=== PATIENT | female | born 1985 | race Caucasian/White ===

== ENCOUNTER 2016-09-02 09:23 | Emergency (ER) | payer BC, OTHER ==
[~2016-09-02] VITALS: Ht 170.2 cm; Wt 104.3 kg
[~2016-09-02 09:23] MED LIST: CETI10TA22 PO
--- NOTE | 2016-09-02 09:46 | PHYS DOC ---
General Chief Complaint: ABDOMINAL PAIN Stated Complaint: ABDOMINAL PAIN Time Seen by MD: 09:45 Source: patient Exam Limitations: no limitations Problems: History of Present Illness Initial Comments Patient is a 30-year-old female with history of irritable bowel syndrome who comes to the emergency department complaining of abdominal pain. Patient states that 2 days ago on Friday for irritable bowel symptoms appear to be acting up as she had 6 loose watery stools. She tried some bowel rest initially and yesterday had some jerk chicken. After the chicken her abdominal discomfort worsen. Discomfort primarily in the right side of the abdomen worse with certain movements relieved with rest somewhat. She denies travel or bad food exposure no sick contacts with similar symptoms. Symptoms are different from her normal irritable bowel symptoms in she says it usually doesn't hurt this bad. Pain described as aching/cramping mild to moderate at rest described as severe after eating or with certain movements. No vomiting no blood noted in her stool she is hungry but appears eating as she thinks her pain will worsen. No pre-arrival treatment she had a normal colonoscopy within the past 2 years. No chest pain or trouble breathing. Timing/Duration: changing over time, other (2 days) Severity: moderate Modifying Factors: worse with eating, worse with movement, improves with rest Associated Symptoms: other Allergies: Coded Allergies: No Known Drug Allergies (Unverified , 07/22/13) Past Medical History Medical History: asthma, other ( irritable bowel syndrome) Surgical History: noncontributory LMP (Females 10-50): last week Family History Significant Family History: no pertinent family hx Social History Smoker: non-smoker Alcohol: occasionally Drugs: none Review of Systems Constitutional: denies chills, denies diaphoresis, denies fever, denies malaise Respiratory: denies cough, denies shortness of breath Cardiovascular: denies chest pain, denies palpitations Gastrointestinal: see HPI Genitourinary: denies dysuria, denies frequency, denies hematuria Musculoskeletal: denies back pain, denies joint pain, denies joint swelling, denies neck pain Psychiatric/Neurological: denies headache, denies numbness, denies paresthesia Hematologic/Lymphatic: denies blood clots, denies easy bleeding, denies easy bruising Physical Exam General Appearance: no apparent distress, obese Eyes: bilateral eye normal inspection, bilateral eye PERRL, bilateral eye EOMI Ear, Nose, Throat: normal ENT inspection, normal pharynx Neck: non-tender, supple Respiratory: chest non-tender, normal breath sounds, no respiratory distress Cardiovascular: normal peripheral pulses, regular rate, rhythm Gastrointestinal: soft (nondistended, bowel sounds diminished. Right lower quadrant tenderness to palpation without rebound or guarding or palpable mass, negative Avery) Back: no CVA tenderness, no vertebral tenderness Extremities: non-tender, normal inspection Neurologic/Psychiatric: core carrier II-XII nml as tested, no motor/sensory deficits, alert, normal mood/affect, oriented x 3 Skin: normal color, warm/dry Orders, Labs, Meds EKG: NSR 76 bpm, no STEMI. Interpreted by Dr Magana. GI cocktail, Pepcid, normal saline bolus given in the emergency department. 1117: Time in department 1h 56min. CT pending, pt will have prolonged ED course due to radiology delay PATIENT: NICHOLAS MCGOVERN ACCOUNT: [id number] : 1985 LOCATION: ER AGE: 30 SEX: F EXAM STATUS: REG ER ORD. PHYSICIAN: SHELL MAGANA DO REASON: abdominal pain RLQ h/o IBS normal scope last year PROCEDURE: CT ABD PELV W/ IV CONTRST ONLY CT ABDOMEN AND PELVIS WITH IV CONTRAST History: abdominal pain RLQ, diarrhea, h/o IBS normal scope last year Comparison: None. Technique: After administration of oral and intravenous contrast, helical CT of the abdomen and pelvis was performed from the lung bases through the ischial tuberosities. Axial and coronal reconstructions were obtained. 75 mL of Omnipaque 350 were used. Abdomen Findings: The visualized lung bases are clear. Subcentimeter hypoattenuating right hepatic lesions are too small to characterize but statistically likely represent simple hepatic cysts. Otherwise normal liver. Accessory splenule. Otherwise normal spleen. The pancreas, gallbladder, and bilateral adrenal glands are normal. Bilateral kidneys enhance symmetrically. There is no focal renal mass. There is no hydronephrosis. Colonic wall thickening with surrounding inflammatory changes and free fluid near the hepatic flexure. The appendix is normal in caliber. It courses superiorly and runs adjacent to the pericolonic free fluid near the hepatic flexure, but does not appear to be involved in the inflammatory process. Visualized loops of small bowel are normal. There is no evidence of bowel obstruction. There is no abdominal or retroperitoneal adenopathy. The abdominal aorta is normal in caliber. Small fat-containing umbilical hernia. Pelvis findings: Urinary bladder is normal. Fluid within the endometrial canal likely physiologic given patient's age. Numerous bilateral ovarian small cysts. There is no free fluid. There is no pelvic or inguinal adenopathy. There is no acute bony abnormality. Partially sacralized L5. IMPRESSION: Colonic wall thickening with surrounding inflammatory changes and free fluid near the hepatic flexure. Findings are most consistent with colitis (infectious or inflammatory) given patient's history. PQRS Compliance Statement: One or more of the following individualized dose reduction techniques were utilized for this examination: 1. Automated exposure control 2. Adjustment of the mA and/or kV according to patient size 3. Use of iterative reconstruction technique DICTATED AND SIGNED BY: RICHAR KAHN MD DATE: 09/02/16 7052 CC: PCP,NO; SHELL MAGANA DO ~ White blood cells 11.3 otherwise reassuring labs and urine studies. I discussed findings with the patient at length, she is feeling better after medications. No diarrhea or emesis while in the emergency department. I discussed the treatment plan and follow-up the patient expressed agreement and understanding of same. Departure Time of Disposition: 12:06 Disposition: HOME, SELF-CARE Diagnosis: colitis Condition: GOOD Patient Instructions: Colitis Additional Instructions: Rest, no strenuous activity. Off work thru 09/04. Clear liquids today, advance diet slowly as tolerated tomorrow. Rx: dicyclomine, prednisone, zofran odt, norco 5mg #10 Follow up with your doctor Friday for recheck. Return to ED with new or changing symptoms. SHELL MAGANA DO Sep 02, 2016 09:46
[2016-09-02] MEDS ORDERED: IOHEXOL 300 MG/ML 75 ML VIAL. IV ONE (10:10)
[2016-09-02 10:14] LABS: BASO % 0 % (0-3); EOS # 0.2 x10^3/uL (0.0-0.7); EOS % 2 % (0-3); HEMATOCRIT 44.2 % (36.0-47.0); LYMPH # 2.2 x10^3/uL (1.0-4.8); LYMPH % 19 % (24-48); MEAN CORPUSCULAR HEMOGLOBIN 28 pg (25-35); MEAN CORPUSCULAR HGB CONC 34 g/dL (31-37); MEAN CORPUSCULAR VOLUME 82 fL (79-100); MONO # 0.6 x10^3/uL (0.0-1.1); MONO % 6 % (0-9); NEUT # 8.2 x10^3uL (1.8-7.7); NEUT % 73 % (31-73); PLATELET COUNT 233 x10^3/uL (140-400); RED BLOOD COUNT 5.39 x10^6/uL (3.50-5.40); RED CELL DISTRIBUTION WIDTH 13.1 % (11.5-14.5); WHITE BLOOD COUNT 11.3 x10^3/uL (4.0-11.0)
[2016-09-02] MEDS ORDERED: ONDANSETRON PF 4 MG/2 ML VIAL. IV ONE (10:20)
[2016-09-02] MEDS ORDERED: IV NORMAL SALINE 1,000ML 1,000 ML IV SCH (10:20)
[2016-09-02] MEDS ORDERED: LIDO:MAALOX 1:1 20 ML SINGLE DOSE PO ONE (10:20)
[2016-09-02] MEDS ORDERED: FAMOTIDINE 20 MG/2 ML VIAL IVP ONE (10:20)
[2016-09-02 10:21] LABS: AMPHETAMINE/METHAMPHETAMINE NEG (NEG); BARBITURATES NEG (NEG); BENZODIAZEPINES NEG (NEG); CANNABINOIDS NEG (NEG); COCAINE NEG (NEG); METHADONE NEG (NEG); OPIATES NEG (NEG); PHENCYCLIDINE NEG (NEG)
--- NOTE | 2016-09-02 10:23 | EKG ---
[address] [address] Test Date: 2016-09-02 Test Time: 10:04:57 Pat Name: NICHOLAS MCGOVERN Department: Room: Gender: F Thermoforming Operator: : 1985 Requested By: SHELL MAGANA Order Number: [id number] Reading MD: Varghese Ashby Measurements Intervals [place] Rate: 76 P: 26 KS: 156 QRS: 4 QRSD: 86 T: -6 QT: 388 QTc: 441 Interpretive Statements SINUS RHYTHM Electronically Signed On 09-08-2016 14:57:19 CDT by Varghese Ashby
[2016-09-02 10:27] LABS: CLARITY,URINE HAZY; COLOR,URINE YELLOW
[2016-09-02 10:28] LABS: BACTERIA,URINE FEW /HPF (0-FEW); BILIRUBIN,URINE NEG (NEG); GLUCOSE,URINE NEG (NEG); NITRITE,URINE NEG (NEG); SQUAMOUS EPITHELIAL CELL,UR MOD /LPF; UROBILINOGEN,URINE 0.2 mg/dL (0.2 mg/dL); WBC,URINE OCC /HPF (0-4)
[2016-09-02 10:29] LABS: ALBUMIN/GLOBULIN RATIO 1.1 (1.0-1.7); CREATININE 0.9 mg/dL (0.6-1.0); GFR 74.6; POTASSIUM 3.8 mmol/L (3.5-5.1); TOTAL BILIRUBIN 0.6 mg/dL (0.2-1.0); TOTAL PROTEIN 7.8 g/dL (6.4-8.2)
--- NOTE | 2016-09-02 11:59 | RAD ---
CT ABDOMEN AND PELVIS WITH IV CONTRAST History: abdominal pain RLQ, diarrhea, h/o IBS normal scope last year Comparison: None. Technique: After administration of oral and intravenous contrast, helical CT of the abdomen and pelvis was performed from the lung bases through the ischial tuberosities. Axial and coronal reconstructions were obtained. 75 mL of Omnipaque 350 were used. Abdomen Findings: The visualized lung bases are clear. Subcentimeter hypoattenuating right hepatic lesions are too small to characterize but statistically likely represent simple hepatic cysts. Otherwise normal liver. Accessory splenule. Otherwise normal spleen. The pancreas, gallbladder, and bilateral adrenal glands are normal. Bilateral kidneys enhance symmetrically. There is no focal renal mass. There is no hydronephrosis. Colonic wall thickening with surrounding inflammatory changes and free fluid near the hepatic flexure. The appendix is normal in caliber. It courses superiorly and runs adjacent to the pericolonic free fluid near the hepatic flexure, but does not appear to be involved in the inflammatory process. Visualized loops of small bowel are normal. There is no evidence of bowel obstruction. There is no abdominal or retroperitoneal adenopathy. The abdominal aorta is normal in caliber. Small fat-containing umbilical hernia. Pelvis findings: Urinary bladder is normal. Fluid within the endometrial canal likely physiologic given patient's age. Numerous bilateral ovarian small cysts. There is no free fluid. There is no pelvic or inguinal adenopathy. There is no acute bony abnormality. Partially sacralized L5. IMPRESSION: Colonic wall thickening with surrounding inflammatory changes and free fluid near the hepatic flexure. Findings are most consistent with colitis (infectious or inflammatory) given patient's history. PQRS Compliance Statement: One or more of the following individualized dose reduction techniques were utilized for this examination: 1. Automated exposure control 2. Adjustment of the mA and/or kV according to patient size 3. Use of iterative reconstruction technique
[2016-09-02 12:12] VITALS: BP 123/79
== END 2016-09-02 12:14 | disposition home or self-care (01) ==
LOC: ER 09:23
DX: K52.9 Noninfective gastroenteritis and colitis, unspecified (principal); J45.909 Unspecified asthma, uncomplicated; K58.9 Irritable bowel syndrome, unspecified
CPT/HCPCS: 36415; 74177; 80053; 80307; 81001; 81025; 82550; 83690; 84484; 85027; 93005; 96361; 96374; 96375; 99285; J2405; Q9967; S0028; G0481; G0479; J7030